=== PATIENT | female | born 1975 | race Caucasian/White ===

== ENCOUNTER 2021-03-24 07:11 | Emergency (ER) | payer MEDICAID ==
[~2021-03-24] VITALS: Ht 152.4 cm; Wt 88.2 kg
[2021-03-24 07:34] VITALS: BP 122/78
[2021-03-24] MEDS ORDERED: AZIT500T4 PO (10:31)
[2021-03-24 10:45] LABS: COVID AG,FIA SOURCE NASOPHARYNGEAL
== END 2021-03-24 11:53 | disposition home or self-care (01) ==
LOC: EMS 07:18
DX: U07.1 COVID-19 (principal); J01.90 Acute sinusitis, unspecified; I10 Essential (primary) hypertension
CPT/HCPCS: 87426; 99283; U0003